=== PATIENT | female | born 1995 | race Caucasian/White ===

== ENCOUNTER 2016-11-07 19:21 | Emergency (ER) | payer MEDICAID ==
--- NOTE | 2016-11-07 20:30 | EDM.PDOC ---
ED HPI GENERAL MEDICAL PROBLEM - General Chief Complaint: General Stated Complaint: ANAL BLEEDING Time Seen by Provider: 11/07/16 19:35 Source of Information: Reports: Patient History Limitations: Reports: No Limitations - History of Present Illness Onset: Gradual Onset Date: 11/02/16 Onset Time: 08:00 Duration: Day(s): (5) Location: Reports: Other (Rectum) Quality: Reports: Other (Bleeding from anus.) Improves with: Reports: None Worsens with: Reports: None Context: Reports: Other (Notices bleeding after Bowel Movement. 8 weeks .) Associated Symptoms: Reports: No Other Symptoms - Related Data Allergies Allergy/AdvReac Type Severity Reaction Status Date / Time nickel Allergy Swelling Verified 11/07/16 19:39 Home Meds: Home Meds Cholecalciferol (Vitamin D3) [Vitamin D] 50,000 unit PO Q7D 11/07/16 [History] Hydrocortisone [Anusol-HC] 30 gm RC Q6HR 7 Days #30 cream..g. 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 Endocrine/Metabolic History: Reports: Vitamin D Deficiency, Other (See Below) Other Endocrine/Metabolic History: Taking D 3. - Past Surgical History HEENT Surgical History: Reports: Other (See Below) Other HEENT Surgeries/Procedures: [place] teeth extraction. Female Surgical History: Reports: Section, Other (See Below) Other Female Surgeries/Procedures: 09-09-16. Social & Family History - Tobacco Use Smoking Status *Q: Never Smoker ED ROS GENERAL - Review of Systems Review Of Systems: ROS reveals no pertinent complaints other than HPI. ED EXAM, GENERAL - Physical Exam Exam: See Below Exam Limited By: No Limitations General Appearance: Alert, WD/WN, No Apparent Distress Eye Exam: Bilateral Eye: EOMI, Normal Fundi, Normal Inspection, PERRL Ears: Normal External Exam, Normal Canal, Hearing Grossly Normal, Normal TMs Ear Exam: Bilateral Ear: Auricle Normal, Canal Normal, TM normal Nose: Normal Inspection, Normal Mucosa, No Blood Throat/Mouth: Normal Inspection, Normal Lips, Normal Teeth, Normal Gums, Normal Oropharynx, Normal Voice, No Airway Compromise Head: Atraumatic, Normocephalic Neck: Normal Inspection, Supple, Non-Tender, Full Range of Motion Respiratory/Chest: No Respiratory Distress, Lungs Clear, Normal Breath Sounds, No Accessory Muscle Use, Chest Non-Tender Cardiovascular: Normal Peripheral Pulses, Regular Rate, Rhythm, No Edema, No Gallop, No JVD, No Murmur, No Rub GI/Abdominal: Normal Bowel Sounds, Soft, Non-Tender, No Organomegaly, No Distention, No Abnormal Bruit, No Mass Rectal (Female) Exam: Hemorrhoids (With), Rectal Fissure Back Exam: Normal Inspection, Full Range of Motion, NT Extremities: Normal Inspection, Normal Range of Motion, Non-Tender, Normal Capillary Refill, No Pedal Edema Neurological: Alert, Oriented, CN II-XII Intact, Normal Cognition, Normal Gait, Normal Reflexes, No Motor/Sensory Deficits Psychiatric: Normal Affect, Normal Mood Skin Exam: Warm, Dry, Intact, Normal Color, No Rash Course - Vital Signs Text/Narrative:: Uneventful ED course. She will use anusol HC suppositories bid and anusol cream qid x 7 days for the hemorrhoids and anal fissure. If not better in 2 weeks she will see her PCP for further evaluation and treatment. Last Recorded V/S: Last Vital Signs Temp 36.9 C 11/07/16 20:35 Pulse 70 11/07/16 20:35 Resp 18 11/07/16 20:35 BP 117/74 11/07/16 20:35 Pulse Ox 98 11/07/16 20:35 - Orders/Labs/Meds Labs: Laboratory Tests 11/07/16 11/07/16 Range/Units 19:50 19:50 WBC 8.2 (4.5-12.0) X10-3/uL RBC 5.06 (3.23-5.20) x10(6)uL Hgb 14.3 (11.5-15.5) g/dL Hct 42.3 (30.0-51.3) % MCV 83.6 (80-96) fL MCH 28.2 (27.7-33.6) pg MCHC 33.8 (32.2-35.4) g/dL RDW 12.9 (11.5-15.5) % Plt Count 370 H (125-369) X10(3)uL MPV 6.9 L (7.4-10.4) fL Neut % (Auto) 65.4 (46-82) % Lymph % (Auto) 28.1 (13-37) % [place] % (Auto) 4.3 (4-12) % Eos % (Auto) 2 (1.0-5.0) % Baso % (Auto) 1 (0-2) % Neut # (Auto) 5.3 (1.6-8.3) # Lymph # (Auto) 2.3 (0.6-5.0) # [place] # (Auto) 0.4 (0.0-1.3) # Eos # (Auto) 0.1 (0.0-0.8) # Baso # (Auto) 0.1 (0.0-0.2) # Sodium 139 (135-145) mmol/L Potassium 3.6 (3.5-5.3) mmol/L Chloride 103 (100-110) mmol/L Carbon Dioxide 26 (23-29) mmol/L BUN 15 (5-20) mg/dL Creatinine 0.7 (0.6-1.3) mg/dL Est Cr Clr Drug Dosing 120.01 mL/min Estimated GFR (MDRD) > 60 (>60) BUN/Creatinine Ratio 21.4 H (9-20) Glucose 97 (80-116) mg/dL Calcium 9.4 (8.6-10.2) mg/dL Total Bilirubin 0.4 (0.1-1.3) mg/dL AST 30 H (5-27) IU/L ALT 59 H (14-26) IU/L Alkaline Phosphatase 93 (56-112) IU/L Total Protein 7.9 (6.0-8.0) g/dL Albumin 4.7 (3.5-5.2) g/dL Globulin 3.2 g/dL Albumin/Globulin Ratio 1.5 Departure - Departure Time of Disposition: 20:46 Disposition: Home, Self-Care 01 Condition: Good Clinical Impression: Hemorrhoid, Anal fissure - Discharge Information Prescriptions: Hydrocortisone [Anusol-HC] 30 gm RC Q6HR 7 Days #30 cream..g. Referrals: PCP,None [Primary Care Provider] - Forms: ED Department Discharge
[2016-11-07 20:40] VITALS: BP 117/74
== END 2016-11-07 20:40 | disposition home or self-care (01) ==
LOC: FB.ED 19:21
DX: K60.2 Anal fissure, unspecified (principal); K64.9 Unspecified hemorrhoids; Z91.048 Other nonmedicinal substance allergy status
CPT/HCPCS: 36415; 80053; 85025; 99283